=== PATIENT | male | born 1990 | race Two or more races ===

== ENCOUNTER 2017-05-17 10:03 | Emergency (ER) | payer OTHER ==
[2017-05-17 10:08] VITALS: BP 134/100; PULSE 89; TEMP 98.6; BMI 24.7
[2017-05-17] MEDS ORDERED: KETOROLAC TROMETHAMINE 60 MG/2 ML VIAL IM ONE (11:11)
[2017-05-17] MEDS ORDERED: KETOROLAC TROMETHAMINE 60 MG/2 ML VIAL ONE (11:12)
--- NOTE | 2017-05-17 11:17 | PDOC ---
History of Present Illness - General Chief Complaint: Injury Stated Complaint: ANKLE PAIN Time Seen by Provider: 05/17/17 10:35 History Source: Patient Exam Limitations: No Limitations - History of Present Illness Initial Comments: 05/17/17 11:11 Patient came to emergency department for evaluation of right ankle pain. Is uncertain as to cause of injury or pain, states stepdown from bed yesterday and may have landed too hard but does not have memory of any type of injury or sports related trauma. States became tender and is progressively worsened since yesterday. Has some swelling and erythema to his right lateral ankle. No history of gout, any rheumatology diseases although much of family suffers from osteoarthritis 05/17/17 19:30 05/17/17 19:37 Occurred: reports: yesterday Severity: reports: mild Pain Location: reports: lower extremity (right ankle ) Associated Symptoms (Fall): denies symptoms Past History - Travel Traveled outside of the country in the last 30 days: No Close contact w/someone who was outside of country & ill: No - Past Medical History Allergies/Adverse Reactions: Allergies Allergy/AdvReac Type Severity Reaction Status Date / Time No Known Allergies Allergy Verified 05/17/17 10:06 Home Medications: Ambulatory Orders Indomethacin [Indocin -] 50 mg PO TID #21 capsule 05/17/17 Other medical history: denies - Immunization History Immunization Up to Date: Yes - Psycho/Social/Smoking Cessation Hx Anxiety: No Suicidal Ideation: No Smoking Status: No Smoking History: Unknown if ever smoked Have you smoked in the past 12 months: No Number of Cigarettes Smoked Daily: 0 Information on smoking cessation initiated: No Hx Alcohol Use: No Drug/Substance Use Hx: No Substance Use Type: None Trauma Specific PMHX - Complaint Specific PMHX Back Injury: No Neck Injury: No Review of Systems - Review of Systems Able to Perform ROS?: Yes Is the patient limited Sinhala proficient: Yes Constitutional: Yes: Symptoms Reported HEENTM: No: Symptoms Reported Respiratory: No: Symptoms reported Musculoskeletal: Yes: Symptoms Reported, See HPI, Joint Swelling, Joint Stiffness (righjt ankle ) Integumentary: Yes: Symptoms Reported, See HPI, Erythema Neurological: No: Symptoms reported All Other Systems: Reviewed and Negative *Physical Exam - Vital Signs Last Vital Signs Temp Pulse Resp BP Pulse Ox 98.6 F 89 18 134/100 98 05/17/17 10:05 06/29/17 10:05 05/17/17 10:05 05/17/17 10:05 05/17/17 10:05 - Physical Exam General Appearance: Yes: Nourished, Appropriately Dressed, Apparent Distress HEENT: positive: DWAINE, Normal ENT Inspection, TMs Normal, Pharynx Normal Neck: negative: Tender Gastrointestinal/Abdominal: positive: Soft Musculoskeletal: positive: Normal Inspection Extremity: positive: Normal Capillary Refill, Normal Inspection, Tender, Swelling, Erythema. negative: Normal Range of Motion (painful erythema to right lateral malleolus, warm to touch,) Integumentary: positive: Normal Color Neurologic: positive: meatman II-XII NML intact, Fully Oriented, Alert, Normal Mood/ Affect, Normal Response, Motor Strength 03/23 ED Treatment Course - RADIOLOGY Radiology Studies Ordered: Category Date Time Status ANKLE & FOOT-RIGHT* [RAD] Stat Radiology 05/17/17 10:37 Completed Progress Note - Progress Note Progress Note: X-ray negative for fractures dislocations or any arthritic changes, Arthritic right ankle, will treat with anti-inflammatories and patient will follow up with orthopedist/podiatry for further *DC/Admit/Observation/Transfer Diagnosis at time of Disposition: Ankle joint pain Qualifiers: Laterality: right Qualified Code(s): M25.571 - Pain in right ankle and joints of right foot - Discharge Dispostion Disposition: HOME Condition at time of disposition: Stable Admit: No - Prescriptions Prescriptions: Indomethacin [Indocin -] 50 mg PO TID #21 capsule - Referrals Referrals: Jose Antonio Delgadillo [Primary Care Provider] - - Patient Instructions Printed Discharge Instructions: DI for Ankle Pain Additional Instructions: Rest, ice to area on and off for 15 minutes 4-6 times a day Avoid heavy lifting or exercise until pain and swelling is resolved or until further directed Keep area highly elevated to reduce swelling Use splints/Jamaal wrap as directed Followup with orthopedist in one to 2 days if not improving, if significantly improved may wait one week for followup with orthopedist May use ibuprofen 2-200 mg tablets every 6 hours as needed for pain - Post Discharge Activity Work/School Note: Back to Work
== END 2017-05-17 12:01 | disposition home or self-care (01) ==
LOC: JERFT 10:03
PROC: 2W3SX1Z Immobilization of Right Foot using Splint (ICD-10-PCS; principal; 2017-05-17)
DX: M25.571 Pain in right ankle and joints of right foot (principal); X58.XXXA Exposure to other specified factors, initial encounter; Y93.89 Activity, other specified; Y92.9 Unspecified place or not applicable
CPT/HCPCS: 73610-TC-RT; 73630-TC-RT; 99281-25

== ENCOUNTER 2017-12-14 14:15 | Emergency (ER) | payer OTHER ==
[2017-12-14 14:43] VITALS: BP 136/66; PULSE 89; TEMP 98.5; BMI 30.9
--- NOTE | 2017-12-14 14:43 | PDOC ---
Rapid Medical Evaluation Chief Complaint: Pain, Acute Time Seen by Provider: 12/14/17 14:39 Medical Evaluation: Allergies Allergy/AdvReac Type Severity Reaction Status Date / Time No Known Allergies Allergy Verified 05/17/17 10:06 Vital Signs Temp Pulse Resp BP Pulse Ox 99.3 F 99 H 20 105/58 99 12/14/17 14:28 12/14/17 14:28 12/14/17 14:28 12/14/17 14:28 12/14/17 14:28 12/14/17 14:41 I have performed a brief in-person evaluation of this patient. The patient presents with a chief complaint of: pain with urgency to urine and scant bleeding . "feels like I have another kidney stone" Pertinent physical exam findings: prancing and pale.. mild distress, I have ordered the following: UA , Spiral CT - The patient will proceed to the ED for further evaluation.
[2017-12-14 14:54] LABS: URINE APPEARANCE CLEAR; URINE BILIRUBIN NEGATIVE (NEGATIVE); URINE BLOOD 1+ (NEGATIVE); URINE COLOR LTYELLOW; URINE GLUCOSE (UA) NEGATIVE (NEGATIVE); URINE KETONE NEGATIVE (NEGATIVE); URINE LEUK ESTERASE NEGATIVE (NEGATIVE); URINE NITRITE NEGATIVE (NEGATIVE); URINE PROTEIN NEGATIVE (NEGATIVE); URINE UROBILINOGEN NEGATIVE mg/dL (0.2-1.0)
--- NOTE | 2017-12-14 15:18 | PDOC ---
History of Present Illness - General Chief Complaint: Pain, Acute Stated Complaint: LEFT SIDE PAIN Time Seen by Provider: 12/14/17 14:39 History Source: Patient - History of Present Illness Travel History: No Initial Comments: 12/14/17 15:15 27 yr male with history of kidney stones presents to ER with left flank and low back pain urianry urgency for 4 days no nausea or vomiting. Timing/Duration: reports: constant Quality: reports: mild Past History - Past Medical History Allergies/Adverse Reactions: Allergies Allergy/AdvReac Type Severity Reaction Status Date / Time No Known Allergies Allergy Verified 05/17/17 10:06 Home Medications: Ambulatory Orders NK [No Known Home Medication] 12/14/17 - Immunization History Immunization Up to Date: Yes - Suicide/Smoking/Psychosocial Hx Smoking Status: No Smoking History: Never smoked Have you smoked in the past 12 months: No Number of Cigarettes Smoked Daily: 0 Hx Alcohol Use: No Drug/Substance Use Hx: No Substance Use Type: None Abd/GI Specific PMHX - Complaint Specific PMHX Other History: kidney stones Review of Systems - Review of Systems Able to Perform ROS?: Yes Is the patient limited Azeri proficient: No Constitutional: No: Symptoms Reported HEENTM: No: Symptoms Reported Respiratory: No: Symptoms reported Cardiac (ROS): No: Symptoms Reported ABD/GI: No: Symptoms Reported : Yes: See HPI *Physical Exam - Vital Signs Last Vital Signs Temp Pulse Resp BP Pulse Ox 98.5 F 89 16 136/66 99 12/14/17 14:40 12/14/17 14:40 12/14/17 14:40 12/14/17 14:40 12/14/17 14:40 - Physical Exam General Appearance: Yes: Nourished, Appropriately Dressed HEENT: positive: EOMI, DWAINE Neck: positive: Supple Respiratory/Chest: positive: Lungs Clear, Normal Breath Sounds Cardiovascular: positive: Regular Rhythm, Regular Rate Gastrointestinal/Abdominal: positive: Normal Bowel Sounds, Soft Male Genitalia: negative: discharge, testicular tenderness, testicular mass, hernia, CVAT Lymphatic: negative: Adenopathy Musculoskeletal: positive: Normal Inspection Extremity: positive: Normal Capillary Refill Medical Decision Making - Medical Decision Making 12/14/17 15:16 cc: urinary urgency and pressure, left sided low back and flank pain for 4 days relieved with motrin 800mg taken yesterday. no nvd no fever or vomiting, no acute pain at present now. 12/14/17 16:21 ct resulted and discussed with pt in detail he is aware of the findings. pt states his pain has improved since ER visit pt states he feels he may have passed any stones earlier today. *DC/Admit/Observation/Transfer Diagnosis at time of Disposition: Renal colic, Renal stone - Discharge Dispostion Disposition: HOME Condition at time of disposition: Good - Referrals Referrals: Jose Antonio Delgadillo [Primary Care Provider] - Kvng Gomez MD [Staff Physician] - - Patient Instructions Additional Instructions: follow with the urologist next week for follow up also follow up with your PMD regarding the lung nodule found on the cat scan drink at least 2 liters of water a day avoid iced teas take ibuprofen 800mg every 8hrs for pain as needed - Post Discharge Activity
[2017-12-14 15:28] LABS: EPI CELLS RARE /HPF (FEW); URINE MUCUS RARE
== END 2017-12-14 16:32 | disposition home or self-care (01) ==
LOC: JERFT 14:15
DX: N20.0 Calculus of kidney (principal); Z87.442 Personal history of urinary calculi
CPT/HCPCS: 36415; 74176; 81003; 81015; 87491; 87591; 99281-25

== ENCOUNTER 2018-04-07 02:03 | Emergency (ER) | payer OTHER ==
[2018-04-07] MEDS ORDERED: KETOROLAC TROMETHAMINE 30 MG/1 ML VIAL IVPUSH ONE (02:37)
[2018-04-07] MEDS ORDERED: SODIUM CHLORIDE 1,000 ML IV STA (02:37)
[2018-04-07 02:43] VITALS: BP 136/89; PULSE 88; TEMP 98.2; BMI 30.9
--- NOTE | 2018-04-07 02:43 | PDOC ---
History of Present Illness - General Chief Complaint: Back Pain Stated Complaint: BACK PAIN/STOMACH PAIN Time Seen by Provider: 04/07/18 02:26 History Source: Patient, Old Records Exam Limitations: No Limitations - History of Present Illness Travel History: No Initial Comments: 04/07/18 02:38 28-year-old male with history of kidney stones presents emergency Department with progressively worsening pain starting in the right flank working its way down to suprapubic area. Patient states the pain came on suddenly 2 days ago and a stabbing feeling and has now increased in intensity at its worked its way from flank to suprapubic area. Currently 9/10. Patient also endorses urinary hesitancy. He denies fevers, chills, shortness of breath, nausea, vomiting, dysuria, hematuria, rectal bleeding. Past History - Past Medical History Allergies/Adverse Reactions: Allergies Allergy/AdvReac Type Severity Reaction Status Date / Time No Known Allergies Allergy Verified 04/07/18 02:43 Home Medications: Ambulatory Orders NK [No Known Home Medication] 12/14/17 - Immunization History Immunization Up to Date: Yes - Suicide/Smoking/Psychosocial Hx Smoking Status: No Smoking History: Never smoked Have you smoked in the past 12 months: No Number of Cigarettes Smoked Daily: 0 Hx Alcohol Use: No Drug/Substance Use Hx: No Substance Use Type: None Review of Systems - Review of Systems Able to Perform ROS?: Yes Is the patient limited Pashto proficient: No Constitutional: No: Symptoms Reported HEENTM: No: Symptoms Reported Respiratory: No: Symptoms reported Cardiac (ROS): No: Symptoms Reported ABD/GI: Yes: See HPI : Yes: See HPI Musculoskeletal: No: Symptoms Reported Integumentary: No: Symptoms Reported Neurological: No: Symptoms reported Endocrine: No: Symptoms Reported *Physical Exam - Physical Exam General Appearance: Yes: Appropriately Dressed. No: Apparent Distress HEENT: positive: Normal ENT Inspection Respiratory/Chest: positive: Lungs Clear, Normal Breath Sounds. negative: Respiratory Distress, Accessory Muscle Use Cardiovascular: positive: Regular Rhythm, Regular Rate. negative: Murmur Gastrointestinal/Abdominal: positive: Normal Bowel Sounds, Tender (suprapubic), Soft Musculoskeletal: positive: Normal Inspection, CVA Tenderness (R). negative: CVA Tenderness (L), Muscle Spasm Extremity: positive: Normal Inspection Integumentary: positive: Normal Color, Dry, Warm Neurologic: positive: Alert, Normal Response ED Treatment Course - LABORATORY CBC & Chemistry Diagram: 04/07/18 02:57 04/07/18 02:57 - RADIOLOGY Radiology Studies Ordered: Category Date Time Status SPIRAL- RENAL-STONE CT [CT] Stat CT Scan 04/07/18 02:37 Ordered Medical Decision Making - Medical Decision Making 04/07/18 02:41 A/P: 28-year-old male with right flank pain for 2 days Right CVA tenderness Abdomen soft and tender to palpation in the suprapubic area Patient states pain is consistent with his usual kidney stone pattern. IV fluids, Toradol, UA, labs, CT, reassess 04/07/18 05:00 Urine Test Results Urine Color Yellow 04/07/18 02:57 Urine Appearance Clear 04/07/18 02:57 Urine pH 5.0 (5.0-8.0) 04/07/18 02:57 Ur Specific [place] 1.021 (1.001-1.035) 04/07/18 02:57 Urine Protein Negative (NEGATIVE) 04/07/18 02:57 Urine Glucose (UA) Negative (NEGATIVE) 04/07/18 02:57 Urine Ketones Negative (NEGATIVE) 04/07/18 02:57 Urine Blood 1+ (NEGATIVE) H 04/07/18 02:57 Urine Nitrite Negative (NEGATIVE) 04/07/18 02:57 Urine Bilirubin Negative (<2.0 mg/dL) 04/07/18 02:57 Ur Leukocyte Esterase Negative (NEGATIVE) 04/07/18 02:57 Ur Epithelial Cells Rare /HPF (FEW) 04/07/18 02:57 Urine Mucus Rare 04/07/18 02:57 Urinalysis consistent with kidney stone. Patient is stating he does not want to wait for CT scan. As explained to the patient necessity for CT scan to rule out obstruction. The likelihood of obstruction giving normal BUN/creatinine at this time. Given the patient has a normal white count has no systemic signs of infection is low likelihood of an infected stone. I will sign the patient out AGAINST MEDICAL ADVICE. Patient verbalized understanding of needs for CAT scan does agree to return should he start to express any symptoms. *DC/Admit/Observation/Transfer Diagnosis at time of Disposition: Renal colic - Discharge Dispostion Disposition: AGAINST MEDICAL ADVICE Condition at time of disposition: Fair - Referrals Referrals: Jose Antonio Delgadillo [Primary Care Provider] - - Patient Instructions Additional Instructions: Urine testing suggest a high probability of the kidney stone. The blood testing reveals at this time he don't have any kidney damage protected change and we need to CAT scan to understand the potential size of the stones and if they're obstructing ureters. If there is an obstruction, urine could back up and cause kidney damage. take Motrin as directed by casting operator's instructions for pain. Return to emergency department for any worsening pain, fevers, chills, bloody urine or any other concerns. - Post Discharge Activity
[2018-04-07] MEDS ORDERED: KETOROLAC TROMETHAMINE 30 MG/1 ML VIAL ONE (03:03)
[2018-04-07 03:50] LABS: BASO % 0.5 % (0-2.0); EOS % 1.1 % (0-4.5); HEMATOCRIT 45.3 % (35.4-49); HEMOGLOBIN 15.2 GM/dL (11.7-16.9); LYMPH % 30.8 % (8-40); MCH 26.9 pg (25.7-33.7); MCHC 33.6 g/dl (32.0-35.9); MEAN CELL VOLUME 80.1 fl (80-96); MEAN PLT VOLUME 8.4 fl (7.5-11.1); MONO % 6.6 % (3.8-10.2); PLATELET COUNT 257 K/MM3 (134-434); RBC 5.65 M/mm3 (4.00-5.60); RDW 14.4 % (11.9-15.9); WHITE BLOOD COUNT 7.9 K/mm3 (4.0-10.0)
[2018-04-07 03:51] LABS: URINE APPEARANCE CLEAR; URINE BILIRUBIN NEGATIVE (<2.0 mg/dL); URINE COLOR YELLOW; URINE GLUCOSE (UA) NEGATIVE (NEGATIVE); URINE KETONE NEGATIVE (NEGATIVE); URINE LEUK ESTERASE NEGATIVE (NEGATIVE); URINE NITRITE NEGATIVE (NEGATIVE); URINE PROTEIN NEGATIVE (NEGATIVE)
[2018-04-07 04:04] LABS: EPI CELLS RARE /HPF (FEW); URINE MUCUS RARE
[2018-04-07 04:13] LABS: ALBUMIN 4.1 g/dl (3.4-5.0); ALK PHOS 68 U/L (45-117); ANION GAP 7 (8-16); BILIRUBIN,TOTAL 0.3 mg/dL (0.2-1.0); BLOOD UREA NITROGEN 15 mg/dL (7-18); CALCIUM 8.6 mg/dL (8.5-10.1); CHLORIDE 108 mmol/L (98-107); CO2 27 mmol/L (21-32); GLUCOSE,RANDOM 96 mg/dL (74-106); SGOT/AST 33 U/L (15-37); SGPT/ALT 77 U/L (12-78); SODIUM 142 mmol/L (136-145); TOT PROT 7.7 g/dl (6.4-8.2)
== END 2018-04-07 05:03 | disposition left against medical advice (07) ==
LOC: JER 02:03
PROC: 3E033GC Introduction of Other Therapeutic Substance into Peripheral Vein, Percutaneous Approach (ICD-10-PCS; principal; 2018-04-07)
DX: N20.0 Calculus of kidney (principal); Z87.442 Personal history of urinary calculi
CPT/HCPCS: 36415; 80053; 81003; 81015; 85025; 96374; 99281-25; J7030

== ENCOUNTER 2018-08-22 23:14 | Emergency (ER) | payer OTHER ==
[2018-08-22 23:16] VITALS: BP 137/87; PULSE 72; TEMP 98.7; BMI 31.8
[2018-08-23] MEDS ORDERED: KETOROLAC TROMETHAMINE 30 MG/1 ML VIAL IVPUSH ONE (00:12)
[2018-08-23] MEDS ORDERED: SODIUM CHLORIDE 1,000 ML IV ONE (00:12)
--- NOTE | 2018-08-23 00:27 | PDOC ---
History of Present Illness - General Chief Complaint: Pain Stated Complaint: PAIN, ACUTE Time Seen by Provider: 08/22/18 23:28 History Source: Patient, Old Records Exam Limitations: No Limitations - History of Present Illness Initial Comments: 08/23/18 00:22 28-year-old male with history of nephrolithiasis presents with right flank pain and yesterday. Reports his typical renal colic consisting of sharp and intermittent right flank pain, now radiating to his right lower quadrant/ testicle, associated with urinary urgency and dribbling but no dysuria or hematuria, some nausea but no vomiting or diarrhea or constipation. No fevers or chills. Denies any testicular swelling or scrotal discoloration. Because the pain was similar to past kidney stone pain, patient waited for presents today secondary to persistent symptoms. Past History - Past Medical History Allergies/Adverse Reactions: Allergies Allergy/AdvReac Type Severity Reaction Status Date / Time No Known Allergies Allergy Verified 08/22/18 23:16 Home Medications: Ambulatory Orders Oxycodone HCl/Acetaminophen [Percocet 5-325 mg Tablet] 1 - 2 tab PO Q6H PRN #20 tab MDD pain 08/23/18 Tamsulosin HCl [Flomax] 0.4 mg PO DAILY #7 cap.er.24h 08/23/18 COPD: No - Immunization History Immunization Up to Date: Yes - Suicide/Smoking/Psychosocial Hx Smoking Status: No Smoking History: Never smoked Have you smoked in the past 12 months: No Number of Cigarettes Smoked Daily: 0 Hx Alcohol Use: No Drug/Substance Use Hx: No Substance Use Type: None Review of Systems - Review of Systems Constitutional: No: Chills, Fever Respiratory: No: Cough, Shortness of Breath Cardiac (ROS): No: Chest Pain ABD/GI: Yes: Nausea. No: Diarrhea, Vomiting : Yes: See HPI All Other Systems: Reviewed and Negative *Physical Exam - Vital Signs Last Vital Signs Temp Pulse Resp BP Pulse Ox 98.7 F 72 18 137/87 100 08/22/18 23:14 08/22/18 23:14 08/22/18 23:14 08/22/18 23:14 08/22/18 23:14 - Physical Exam Comments: 08/23/18 00:24 Afebrile. GENERAL: The patient is awake, alert, and fully oriented, in no acute distress at this time. HEAD: Normal with no signs of trauma. EYES: PERRL, EOMI, sclera anicteric, conjunctiva clear ENT: Moist mucous membranes. NECK: Normal range of motion, supple . LUNGS: Breath sounds equal, clear to auscultation bilaterally. No wheeze/ crackles. HEART: Regular rate and rhythm, normal S1 and S2 without murmur or rub. ABDOMEN: Soft/nondistended. BS wnl. Right-sided abdominal discomfort to palpation without guarding or rebound, positive right CVA tenderness. No palpable masses. No hepatosplenomegaly. : Normal uncircumcised without urethral discharge, normal scrotal exam without focal tenderness or abnormality or erythema or swelling, bilaterally descended testicles, no palpable inguinal hernia. EXTREMITIES: Normal range of motion, no edema. 2+ distal pulses. NEUROLOGICAL: Cranial nerves II through XII grossly intact. Normal speech, normal gait. PSYCH: Normal mood, normal affect. SKIN: Warm, Dry, no rashes or lesions noted. ED Treatment Course - LABORATORY CBC & Chemistry Diagram: 08/23/18 00:18 08/23/18 00:18 - RADIOLOGY Radiology Studies Ordered: Category Date Time Status ABDOMEN & PELVIS CT W/O CONTR [CT] Stat CT Scan 08/23/18 00:21 Ordered Medical Decision Making - Medical Decision Making 08/23/18 00:26 28-year-old male with history of kidney stones presents with intermittent right flank pain since yesterday, similar to past nephrolithiasis. Afebrile, no evidence of superimposed infection. On review of prior records, patient had both 4 and 6 mm stones in the right collecting system, given 24 hours of symptoms and intermittent pain, could be consistent with larger stone causing higher grade obstruction. Check labs and urinalysis CT of the abdomen and pelvis Pain control Reassess 08/23/18 01:39 No leukocytosis, creatinine 1.1 which is baseline, urine with blood but no evidence of infection. On preliminary report of the CAT scan, there is a mid ureteral 4.6mm stone without hydronephrosis. Patient comfortable at this time following Toradol. Agrees with d/c plan on pain meds with urology f/u. Lives close by, understands return criteria. *DC/Admit/Observation/Transfer Diagnosis at time of Disposition: Right flank pain, Renal colic - Discharge Dispostion Disposition: HOME Condition at time of disposition: Improved - Prescriptions Prescriptions: Oxycodone HCl/Acetaminophen [Percocet 5-325 mg Tablet] 1 - 2 tab PO Q6H PRN #20 tab MDD pain PRN Reason: Pain Tamsulosin HCl [Flomax] 0.4 mg PO DAILY #7 cap.er.24h - Referrals Referrals: Jose Antonio Delgadillo [Primary Care Provider] - Franc Brooks MD., [Staff Physician] - - Patient Instructions Printed Discharge Instructions: DI for Kidney Stones Additional Instructions: Activity as tolerated. Stay hydrated. A CT scan shows a 4.6mm kidney stone on the Right side. There is no other infection or kidney problem at this time. Take ibuprofen 600 mg every 8 hours as needed for moderate pain. Take percocet as prescribed as needed for severe pain. Percocet can make you light-headed, so take proper precautions. Also take Flomax as prescribed to possibly help pass the stone. Continue your medications as previously prescribed by your physician. You should follow up with your primary doctor and a urologist (consider calling Dr. Brooks for an appointment) as soon as possible regarding today's emergency department visit. Return to the emergency department for any new or concerning symptoms, particularly persistent or worsening pain, fever or chills, difficulty urinating. - Post Discharge Activity
[2018-08-23] MEDS ORDERED: KETOROLAC TROMETHAMINE 30 MG/1 ML VIAL ONE (00:37)
[2018-08-23 00:46] LABS: HEMATOCRIT 45.1 % (35.4-49); HEMOGLOBIN 15.1 GM/dL (11.7-16.9); MCH 26.5 pg (25.7-33.7); MCHC 33.5 g/dl (32.0-35.9); MEAN CELL VOLUME 79.2 fl (80-96); PLATELET COUNT 245 K/MM3 (134-434); RBC 5.69 M/mm3 (4.00-5.60); RDW 14.6 % (11.9-15.9); WHITE BLOOD COUNT 8.3 K/mm3 (4.0-10.0)
[2018-08-23 00:49] LABS: URINE APPEARANCE SLCLOUDY; URINE BILIRUBIN NEGATIVE (<2.0 mg/dL); URINE COLOR YELLOW; URINE GLUCOSE (UA) NEGATIVE (NEGATIVE); URINE KETONE NEGATIVE (NEGATIVE); URINE LEUK ESTERASE NEGATIVE (NEGATIVE); URINE NITRITE NEGATIVE (NEGATIVE); URINE PROTEIN 1+ (NEGATIVE); URINE UROBILINOGEN NEGATIVE mg/dL (0.2-1.0)
[2018-08-23 01:01] LABS: EPI CELLS RARE /HPF (FEW); URINE BACTERIA MANY /hpf (NONE SEEN); URINE MUCUS RARE
[2018-08-23 01:04] LABS: CALCIUM OXALATE CRYSTALS 1+ /hpf (NONE SEEN)
[2018-08-23 01:20] LABS: ALBUMIN 4.1 g/dl (3.4-5.0); ALK PHOS 67 U/L (45-117); ANION GAP 5 MMOL/L (8-16); BILIRUBIN,TOTAL 0.4 mg/dL (0.2-1); BLOOD UREA NITROGEN 15 mg/dL (7-18); CHLORIDE 106 mmol/L (98-107); CO2 30 mmol/L (21-32); CREATININE 1.1 mg/dL (0.55-1.3); GLUCOSE,RANDOM 89 mg/dL (74-106); POTASSIUM 4.2 mmol/L (3.5-5.1); SGOT/AST 42 U/L (15-37); SGPT/ALT 94 U/L (13-61); SODIUM 141 mmol/L (136-145); TOT PROT 7.8 g/dl (6.4-8.2)
== END 2018-08-23 02:06 | disposition home or self-care (01) ==
LOC: JER 23:14
PROC: 3E0337Z Introduction of Electrolytic and Water Balance Substance into Peripheral Vein, Percutaneous Approach (ICD-10-PCS; principal; 2018-08-22)
PROC: 3E0333Z Introduction of Anti-inflammatory into Peripheral Vein, Percutaneous Approach (ICD-10-PCS; 2018-08-22)
DX: N20.0 Calculus of kidney (principal); Z87.442 Personal history of urinary calculi
CPT/HCPCS: 36415; 74176-TC; 80053; 81003; 81015; 85027; 99281-25; 99283-25; J7030

== ENCOUNTER 2019-03-31 20:00 | Emergency (ER) | payer OTHER ==
--- NOTE | 2019-03-31 20:05 | PDOC ---
Rapid Medical Evaluation Time Seen by Provider: 03/31/19 20:04 Medical Evaluation: Allergies Allergy/AdvReac Type Severity Reaction Status Date / Time No Known Allergies Allergy Verified 08/22/18 23:16 03/31/19 20:04 I have performed a brief in-person evaluation of this patient. The patient presents with a chief complaint of:L flank pain w/ gross hematuria tonight. No n/v/f/c, urethral discharge or testicular pain/swelling. H/o renal stones, no surgeries Pertinent physical exam findings:stable in NAD I have ordered the following:labs/ua/CT The patient will proceed to the ED for further evaluation. 03/31/19 20:05 Discharge Disposition - Diagnosis Flank pain - Referrals - Patient Instructions - Post Discharge Activity
[2019-03-31 20:06] VITALS: BP 134/88; PULSE 75; TEMP 98.2; BMI 31.8
--- NOTE | 2019-03-31 21:35 | PDOC ---
History of Present Illness - General Chief Complaint: Hematuria Stated Complaint: BLOOD IN URINE Time Seen by Provider: 03/31/19 20:04 History Source: Patient - History of Present Illness Initial Comments: 03/31/19 21:30 29 year old c/o left flank pain radiating to left lower abdominal area, since 6.45 pm today.denies fever/ chills., testicular pain, History of kidney stones last Nov 2018, Past History - Past Medical History Allergies/Adverse Reactions: Allergies Allergy/AdvReac Type Severity Reaction Status Date / Time No Known Allergies Allergy Verified 03/31/19 20:08 Home Medications: Ambulatory Orders Oxycodone HCl/Acetaminophen [Percocet 5-325 mg Tablet] 1 - 2 tab PO TID PRN #20 tab MDD 6 tabs 08/23/18 Oxycodone HCl/Acetaminophen [Percocet 5-325 mg Tablet] 1 - 2 tab PO TID PRN #20 tab MDD 6 tabs 08/23/18 Tamsulosin HCl [Flomax -] 0.4 mg PO DAILY #7 cap.er.24h 08/23/18 Tamsulosin HCl [Flomax] 0.4 mg PO DAILY #7 cap.er.24h 08/23/18 COPD: No - Immunization History Immunization Up to Date: Yes - Suicide/Smoking/Psychosocial Hx Smoking Status: No Smoking History: Unknown if ever smoked Have you smoked in the past 12 months: No Number of Cigarettes Smoked Daily: 0 Information on smoking cessation initiated: No Hx Alcohol Use: No Drug/Substance Use Hx: No Substance Use Type: None Review of Systems - Review of Systems Able to Perform ROS?: Yes Is the patient limited Montserratian proficient: No Constitutional: No: Symptoms Reported, See HPI, Chills, Diaphoresis, Fever, Loss of Appetite, Malaise, Night Sweats, Weakness, Weight Stable, Unintentional Wgt. Loss, Unexplained wgt Loss, Other : Yes: Flank Pain, Hematuria. No: Symptoms Reported, See HPI, Burning, Dysuria, Discharge, Frequency, Incontinence, Pain, Urgency, Testicular Mass, Testicular Swelling, Lesions, Testicular Pain, Other *Physical Exam - Vital Signs Last Vital Signs Temp Pulse Resp BP Pulse Ox 98.2 F 75 16 134/88 100 03/31/19 20:04 03/31/19 20:04 03/31/19 20:04 03/31/19 20:04 03/31/19 20:04 - Physical Exam General Appearance: Yes: Appropriately Dressed Gastrointestinal/Abdominal: positive: Normal Bowel Sounds, Tender (LLQ) Musculoskeletal: positive: CVA Tenderness (L) Extremity: positive: Normal Capillary Refill, Normal Inspection, Normal Range of Motion Integumentary: positive: Normal Color, Dry, Warm Neurologic: positive: Fully Oriented, Alert ED Treatment Course - LABORATORY CBC & Chemistry Diagram: 03/31/19 22:10 03/31/19 22:10 Progress Note - Progress Note Progress Note: A: flank pain LIKELY RECENTLY PASSED STONES P: labs spiral CT: MULTIPLE RENAL CALCULI NO HYDRO ON LEFT ua: GROSs hematuria urine culture gonorrhe/ CHLAMYDIA *DC/Admit/Observation/Transfer Diagnosis at time of Disposition: Flank pain, Renal colic - Discharge Dispostion Disposition: HOME - Referrals Referrals: Jose Antonio Delgadillo [Primary Care Provider] - Toro Green MD [Staff Physician] - Call tomorrow - Patient Instructions Printed Discharge Instructions: DI for Kidney Stones Additional Instructions: It is important that you drink plenty of fluids. Please follow-up with a urologist as soon as possible. You have multiple kidney stones noted in the CAT scan. You may return to the emergency room for any worsening symptoms. - Post Discharge Activity Forms/Work/School Notes: Back to Work
[2019-03-31 22:18] LABS: BASO % 0.8 % (0-2.0); EOS % 0.9 % (0-4.5); EPI CELLS 1.4 /HPF (0-5/HPF); HEMATOCRIT 45.5 % (35.4-49); HEMOGLOBIN 15.2 GM/dL (11.7-16.9); LYMPH % 29.4 % (8-40); MCH 26.6 pg (25.7-33.7); MCHC 33.4 g/dl (32.0-35.9); MEAN CELL VOLUME 79.7 fl (80-96); MEAN PLT VOLUME 7.8 fl (7.5-11.1); MONO % 6.4 % (3.8-10.2); NEUT % 62.5 % (42.8-82.8); PH,URINE 5.5 (5.0-8.0); PLATELET COUNT 240 K/MM3 (134-434); RBC 5.71 M/mm3 (4.00-5.60); RDW 14.6 % (11.9-15.9); URINE APPEARANCE TURBID; URINE BACTERIA 0.8 /hpf (NEGATIVE); URINE BILIRUBIN NEGATIVE (NEGATIVE); URINE CASTS 2 /lpf (0-8); URINE COLOR ORANGE; URINE GLUCOSE (UA) NEGATIVE (NEGATIVE); URINE KETONE NEGATIVE (NEGATIVE); URINE LEUK ESTERASE 1+ (NEGATIVE); URINE NITRITE NEGATIVE (NEGATIVE); URINE PROTEIN 1+ (NEGATIVE); URINE RBC 5455 /hpf (0-4); URINE UROBILINOGEN 0.2 mg/dL (0.2-1.0); URINE WBC 11 /hpf (0-5); WHITE BLOOD COUNT 8.6 K/mm3 (4.0-10.0)
[2019-03-31 22:39] LABS: ALBUMIN 4.1 g/dl (3.4-5.0); BILIRUBIN,TOTAL 0.4 mg/dL (0.2-1); CALCIUM 9.3 mg/dL (8.5-10.1); POTASSIUM 3.9 mmol/L (3.5-5.1); TOT PROT 7.6 g/dl (6.4-8.2)
[2019-04-01] MEDS ORDERED: ACETAMINOPHEN 325 MG TABLET (FP) PO ONE (00:03)
[2019-04-01] MEDS ORDERED: ACETAMINOPHEN 325 MG TABLET (FP) ONE (00:14)
== END 2019-04-01 00:34 | disposition home or self-care (01) ==
LOC: JER 20:00
DX: R10.32 Left lower quadrant pain (principal); N20.0 Calculus of kidney
CPT/HCPCS: 36415; 74176-TC; 80053; 81003; 85025; 87086; 87491; 87591; 99282-25

== ENCOUNTER 2019-05-06 09:54 | Emergency (ER) | payer OTHER | END 2019-05-06 14:14 | disposition home or self-care (01) | LOC: JERFT 09:54 ==

== ENCOUNTER 2020-05-25 16:30 | Inpatient (IN) | payer OTHER ==
[2020-05-25 16:47] VITALS: BMI 30.1
[2020-05-25] MEDS ORDERED: KETOROLAC TROMETHAMINE 30 MG/1 ML VIAL IVPUSH ONE (16:48)
[2020-05-25] MEDS ORDERED: SODIUM CHLORIDE 1,000 ML IV STA (16:48)
--- NOTE | 2020-05-25 16:49 | PDOC ---
Rapid Medical Evaluation Chief Complaint: Pain, Acute Time Seen by Provider: 05/25/20 16:47 Medical Evaluation: Allergies Allergy/AdvReac Type Severity Reaction Status Date / Time No Known Allergies Allergy Verified 04/11/20 15:40 Vital Signs Temp Pulse Resp BP Pulse Ox 99.0 F 75 16 131/62 99 05/25/20 16:36 05/25/20 16:36 05/25/20 16:36 05/25/20 16:36 05/25/20 16:36 05/25/20 16:49 CC: rt flank pain since this am, hx stone Exam: rt cva tenderness, vss Plan: labs, urine, u/s. ivf, toradol Discharge Disposition - Diagnosis Right flank pain - Discharge Dispostion Condition at time of disposition: Stable - Referrals Referrals: Jose Antonio Delgadillo [Primary Care Provider] - - Patient Instructions - Post Discharge Activity
[2020-05-25] MEDS ORDERED: TAMSULOSIN HCL 0.4 MG CAP PO ONE (17:02)
[2020-05-25] MEDS ORDERED: KETOROLAC TROMETHAMINE 30 MG/1 ML VIAL ONE (17:05)
--- NOTE | 2020-05-25 17:08 | PDOC ---
History of Present Illness - General Chief Complaint: Pain, Acute Stated Complaint: BACK PAIN Time Seen by Provider: 05/25/20 16:47 History Source: Patient Exam Limitations: Clinical Condition - History of Present Illness Travel History: No Initial Comments: 05/25/20 17:04 Patient with past medical history of kidney stones present with complaint of right flank pain which he described as cramping 8 out of 10 pain to right flank area since yesterday which has worsened today. Denies urinary frequency, dysuria, burning with urination or hematuria. Denies nausea, vomiting, diarrhea constipation. Denies any other symptom. Patient has not taken anything for symptoms Timing/Duration: reports: getting worse, other (1 day) Past History - Medical History Allergies/Adverse Reactions: Allergies Allergy/AdvReac Type Severity Reaction Status Date / Time No Known Allergies Allergy Verified 05/25/20 18:42 Home Medications: Ambulatory Orders NK [No Known Home Medication] 05/25/20 COPD: No Dementia: No Kidney Stones: Yes - Immunization History Immunization Up to Date: Yes - Psycho-Social/Smoking History Smoking Status: No Smoking History: Current every day smoker Have you smoked in the past 12 months: Yes Number of Cigarettes Smoked Daily: 0 Information on smoking cessation initiated: No - Substance Abuse Hx (Audit-C & DAST Scrn) How often the patient has a drink containing alcohol: Never Score: In Men: 4 or > Positive; In Women: 3 or > Positive: 0 Screen Result (Pos requires Nsg. Audit-10AR): Negative In the last yr the pt used illegal drug/Rx for NonMed reason: No Score: Yes response is considered Positive: 0 Screen Result (Positive result requires Nsg. DAST-10): Negative Review of Systems - Review of Systems Able to Perform ROS?: Yes Is the patient limited Greek proficient: No Constitutional: No: Chills, Fever, Malaise HEENTM: No: Symptoms Reported, See HPI, Eye Pain, Blurred Vision, Tearing, Recent change in vision, Double Vision, Cataracts, Ear Pain, Ocular Prothesis, Ear Discharge, Nose Pain, Nose Congestion, Tinnitus, Nose Bleeding, Hearing Loss, Throat Pain, Throat Swelling, Mouth Pain, Dental Problems, Difficulty Swallowing, Mouth Swelling, Other Respiratory: No: Symptoms reported, See HPI, Cough, Orthopnea, Shortness of Breath, SOB with Exertion, SOB at Rest, Stridor, Wheezing, Productive cough, H emoptysis, Other Cardiac (ROS): No: Symptoms Reported, See HPI, Chest Pain, Edema, Irregular Heart Rate, Lightheadedness, Palpitations, Syncope, Chest Tightness, Other ABD/GI: No: Symptoms Reported, See HPI, Constipated, Nausea, Vomiting, Abdominal cramping : Yes: Symptoms Reported, See HPI, Flank Pain (Right flank pain). No: Burning, Dysuria, Discharge, Hematuria, Urgency, Testicular Mass, Testicular Swelling, Lesions, Testicular Pain Musculoskeletal: Yes: Symptoms Reported, See HPI, Back Pain (Right side pain) Neurological: No: Numbness, Paresthesia, Dizziness All Other Systems: Reviewed and Negative *Physical Exam - Vital Signs Last Vital Signs Temp Pulse Resp BP Pulse Ox 99.0 F 75 16 131/62 99 05/25/20 16:36 05/25/20 16:36 05/25/20 16:36 05/25/20 16:36 05/25/20 16:36 - Physical Exam 05/25/20 17:07 GENERAL: Well developed, well nourished. Awake and alert in moderate acute distress. CARDIOVASCULAR: Regular rate and rhythm. No murmurs, rubs, or gallops. PULMONARY: No evidence of respiratory distress. Lungs clear to auscultation bilaterally. No wheezing, rales or rhonchi. ABDOMINAL: Soft. Non-tender. Non-distended. No rebound or guarding. No organomegaly. Normoactive bowel sounds MUSCULOSKELETAL : Moderate tenderness to right flank area. No midline tenderness. Right CVA tenderness. No bony deformities SKIN: Warm and dry. Normal capillary refill. No rashes. No jaundice. NEUROLOGICAL: Alert, awake, appropriate. No motor deficits in the lower extremities. Gait is normal without ataxia. PSYCHIATRIC: Cooperative. Good eye contact. Appropriate mood and affect. General Appearance: Yes: Nourished, Appropriately Dressed, Apparent Distress, Moderate Distress ED Treatment Course - LABORATORY CBC & Chemistry Diagram: 05/25/20 17:20 05/25/20 17:20 - RADIOLOGY Radiology Studies Ordered: Category Date Time Status SPIRAL- RENAL-STONE CT [CT] Stat CT Scan 05/25/20 16:59 Ordered Medical Decision Making - Medical Decision Making 05/25/20 17:05 Patient with past medical history of kidney stones present with complaint of right flank pain which he described as cramping 8 out of 10 pain to right flank area since yesterday which has worsened today. Denies urinary frequency, dysuria, burning with urination or hematuria. Denies nausea, vomiting, diarrhea constipation. Denies any other symptom. Patient has not taken anything for symptoms Exam significant for moderate tenderness to right flank area with subjective right CVA tenderness. No abdominal tenderness. Normal cardio and lung exam. N o guarding or rebound. Patient afebrile Symptoms likely cystitis versus kidney stone versus musculoskeletal pain. CBC, chemistry urine lab ordered from triage. Will add GC and chlamydia tests and urine. Toradol 30 mg IV and Flomax 0.8 mg ordered for flank pain. Spiral CT ordered to rule out kidney stone. Treat based on imaging and lab results 05/25/20 18:42 CBC shows mildly elevated WBC which is likely reactive. Renal ultrasound shows moderate hydronephrosis on the right which is unchanged from ultrasound 2 months ago when patient had same. Patient reported mild improvement with Toradol and still having pain despite seeing sleeping comfortably in chair. Will order Tylenol 1 g IV for pain. Patient pending CT reading 05/25/20 19:[address] shows multiple renal stone with 8.6 x 6 x 12 mm obstructing renal stone in ureter. Discussed with urology Dr. Limon who agrees for patient to be admitted for stent tomorrow morning and patient kept n.p.o. Spoke to admitting medicine team who agrees for patient to be admitted to Dr. Cochran Preadmission labs ordered. Admission order placed for admission to Dr. Cochran Discharge - Discharge Information Problems reviewed: Yes Clinical Impression/Diagnosis: Right flank pain, Renal stone, Hydronephrosis with renal and ureteral calculous obstruction Condition: Stable - Admission Yes - Follow up/Referral Referrals: Jose Antonio Delgadillo [Primary Care Provider] - Mukund Limon MD [Staff Physician] - - Patient Discharge Instructions - Post Discharge Activity
[2020-05-25 17:36] LABS: BASO % 0.6 % (0-2.0); EOS % 0.7 % (0-4.5); HEMATOCRIT 41.7 % (35.4-49); HEMOGLOBIN 13.7 GM/dL (11.7-16.9); MCH 26.6 pg (25.7-33.7); MEAN CELL VOLUME 80.6 fl (80-96); MEAN PLT VOLUME 7.3 fl (7.5-11.1); MONO % 6.9 % (3.8-10.2); NEUT % 79.8 % (42.8-82.8); PLATELET COUNT 379 K/MM3 (134-434); RBC 5.17 M/mm3 (4.00-5.60); RDW 14.6 % (11.9-15.9); WHITE BLOOD COUNT 12.4 K/mm3 (4.0-10.0)
[2020-05-25] MEDS ORDERED: TAMSULOSIN HCL 0.4 MG CAP ONE (17:58)
[2020-05-25 18:23] LABS: ALBUMIN 4.2 g/dl (3.4-5.0); ALK PHOS 210 U/L (45-117); ANION GAP 7 MMOL/L (8-16); BILIRUBIN,TOTAL 0.4 mg/dL (0.2-1); BLOOD UREA NITROGEN 11.4 mg/dL (7-18); CALCIUM 9.7 mg/dL (8.5-10.1); CHLORIDE 102 mmol/L (98-107); CO2 31 mmol/L (21-32); CREATININE 1.5 mg/dL (0.55-1.3); GLUCOSE,RANDOM 99 mg/dL (74-106); POTASSIUM 4.3 mmol/L (3.5-5.1); SGOT/AST 59 U/L (15-37); SGPT/ALT 114 U/L (13-61); SODIUM 141 mmol/L (136-145); TOT PROT 8.4 g/dl (6.4-8.2)
[2020-05-25 18:34] LABS: EPI CELLS 4 /uL (0-25.1); HYALINE CASTS 1 /uL (0-3.1); PH,URINE 6.5 (5.0-8.0); URINE APPEARANCE CLEAR; URINE BACTERIA 17 /uL (0-1359); URINE BILIRUBIN NEGATIVE (NEGATIVE); URINE COLOR YELLOW; URINE GLUCOSE (UA) NEGATIVE (NEGATIVE); URINE KETONE NEGATIVE (NEGATIVE); URINE LEUK ESTERASE NEGATIVE (NEGATIVE); URINE NITRITE NEGATIVE (NEGATIVE); URINE PROTEIN NEGATIVE (NEGATIVE); URINE RBC 75 /uL (0-23.9); URINE WBC 12 /uL (0-25.8)
[2020-05-25] MEDS ORDERED: ACETAMINOPHEN 1000 MG/100 ML VIAL (NON FORMULARY) IVPB ONE (18:43)
[2020-05-25] MEDS ORDERED: ACETAMINOPHEN INJECTION 100 ML IVPB ONE (18:48)
[2020-05-25] MEDS ORDERED: morphine CARPU-JECT 4 MG/1 ML DISP.SYRIN IVPUSH ONE (19:47)
[2020-05-25] MEDS ORDERED: morphine SULFATE 4 MG/ML VIAL ONE (20:51)
--- NOTE | 2020-05-25 21:15 | HP ---
Admitting History and Physical - Primary Care Physician PCP: Jose Antonio Delgadillo - Admission Chief Complaint: Flank Pain History of Present Illness: 30 y/o male with a PMhx of Renal Calculi. Who presents to the ED with right flank pain x 1 day. Patient denies fever, chills, cough, SOB, NICE, dizziness, CP, palpitations, AP, N/V/D, constipation, dysuria. History Source: Patient Limitations to Obtaining History: No Limitations - Past Medical History Renal/: Yes: Renal Calculi - Past Surgical History Additional Past Surgical History: Lithotripsy - Smoking History Smoking history: Current every day smoker Have you smoked in the past 12 months: Yes Aproximately how many cigarettes per day: 0 - Alcohol/Substance Use Hx Alcohol Use: No Home Medications - Allergies Allergies/Adverse Reactions: Allergies Allergy/AdvReac Type Severity Reaction Status Date / Time No Known Allergies Allergy Verified 05/25/20 18:42 - Home Medications Home Medications: Ambulatory Orders NK [No Known Home Medication] 05/25/20 Family Medical History Family History: Unremarkable Review of Systems - Review of Systems Constitutional: reports: No Symptoms Eyes: reports: No Symptoms HENT: reports: No Symptoms Neck: reports: No Symptoms Cardiovascular: reports: No Symptoms Respiratory: reports: No Symptoms Gastrointestinal: reports: No Symptoms Genitourinary: reports: Flank Pain Breasts: reports: No Symptoms Reported Musculoskeletal: reports: No Symptoms Integumentary: reports: No Symptoms Neurological: reports: No Symptoms Endocrine: reports: No Symptoms Hematology/Lymphatic: reports: No Symptoms Psychiatric: reports: No Symptoms Pain Intensity: 8 Physical Examination Vital Signs: Vital Signs Temperature 99.0 F 05/25/20 16:36 Pulse Rate 75 05/25/20 16:36 Respiratory Rate 16 05/25/20 16:36 Blood Pressure 131/62 05/25/20 16:36 O2 Sat by Pulse Oximetry (%) 99 05/25/20 18:45 Constitutional: Yes: Well Nourished, Mild Distress Eyes: Yes: WNL, Conjunctiva Clear, EOM Intact, PERRL HENT: Yes: WNL, Atraumatic, Normocephalic Neck: Yes: WNL, Supple, Trachea Midline Cardiovascular: Yes: WNL, Regular Rate and Rhythm, S1, S2 Respiratory: Yes: WNL, Regular, CTA Bilaterally Gastrointestinal: Yes: Normal Bowel Sounds, Soft, Tenderness ...Rectal Exam: Yes: Deferred Renal/: Yes: CVA Tenderness - Right Breast(s): Yes: WNL Musculoskeletal: Yes: Back Pain Extremities: Yes: WNL Edema: No Peripheral Pulses WNL: Yes Integumentary: Yes: Tattoos Neurological: Yes: WNL, Alert, Oriented, Cran Nerves II-XII Intact ...Motor Strength: WNL Psychiatric: Yes: WNL, Alert, Oriented Labs: CBC, BMP 05/25/20 17:20 05/25/20 17:20 Laboratory Results - last 24 hr 05/25/20 05/25/20 05/25/20 17:20 17:20 18:00 WBC 12.4 H RBC 5.17 Hgb 13.7 Hct 41.7 MCV 80.6 MCH 26.6 MCHC 33.0 RDW 14.6 Plt Count 379 D MPV 7.3 L Absolute Neuts (auto) 9.9 H Neutrophils % 79.8 Lymphocytes % 12.0 Monocytes % 6.9 Eosinophils % 0.7 Basophils % 0.6 Nucleated RBC % 0 Sodium 141 Potassium 4.3 Chloride 102 Carbon Dioxide 31 Anion Gap 7 L BUN 11.4 Creatinine 1.5 H Est GFR (CKD-EPI)AfAm 70.38 Est GFR (CKD-EPI)NonAf 60.73 Random Glucose 99 Calcium 9.7 Total Bilirubin 0.4 AST 59 H ALT 114 H Alkaline Phosphatase 210 H Total Protein 8.4 H Albumin 4.2 Urine Color Yellow Urine Appearance Clear Urine pH 6.5 Ur Specific [place] 1.021 Urine Protein Negative Urine Glucose (UA) Negative Urine Ketones Negative Urine Blood 1+ H Urine Nitrite Negative Urine Bilirubin Negative Urine Urobilinogen 1.0 Ur Leukocyte Esterase Negative Urine WBC (Auto) 12 Urine RBC (Auto) 75 Urine Casts (Auto) 1 U Epithel Cells (Auto) 4 Urine Bacteria (Auto) 17 Imaging - Results Chest X-ray: Report Reviewed, Image Reviewed Cat Scan: Report Reviewed, Image Reviewed Ultrasound: Report Reviewed, Image Reviewed Problem List - Problems (1) Hydronephrosis with renal and ureteral calculous obstruction Assessment/Plan: CTAP image, report reviewed- interval obstructing stone in the right mid ureter 8 x 6.5mm with moderate right renal hydronephrosis and proximal hydroureter Renal US image, report reviewed- moderate right renal hydronephrosis without definite interval change Urology consulted in ED- Dr Limon aware will take pt to OR tomorrow for stent placement UA- +1 blood, 12WBC, 17 Bacteria Urine Culture-pending Zosyn initiated in ED will continue Appreciate ID consult NPO Continue IVF Morphine Sulfate- pain management Monitor CBC, CMP Monitor vitals Code(s): N13.2 - HYDRONEPHROSIS WITH RENAL AND URETERAL CALCULOUS OBSTRUCTION (2) Right flank pain Assessment/Plan: See above Code(s): R10.9 - UNSPECIFIED ABDOMINAL PAIN (3) ROSEMARY (acute kidney injury) Assessment/Plan: Likely secondary to Obstructed Renal Calculi Continue IVF Monitor CMP Consider Nephrology consult if Cr worsens Renal US- reviewed Code(s): N17.9 - ACUTE KIDNEY FAILURE, UNSPECIFIED (4) Transaminitis Assessment/Plan: Unknown etiology Monitor CMP Hepatitis A+B Panel, Hep Bs antigen, Hep C, Fe, TIBC in am Avoid Hepatotoxic drugs Consider GI consult if no improvement Code(s): R74.0 - NONSPEC ELEV OF LEVELS OF TRANSAMNS & LACTIC ACID DEHYDRGNSE Assessment/Plan 30 y/o male with a PMhx of Renal Calculi. Admitted to M/S for Obstructed Renal Calculi with Hydronephrosis, ROSEMARY, Transaminitis for further evaluation of their emergent condition. Plan: See Problem List FEN D50.45%NS@100ml/hr Replete lytes prn NPO DVT ppx OOB SCDs Dispo: Requires Inpatient Care Visit type - Emergency Visit Emergency Visit: Yes ED Registration Date: 05/25/20 Care time: The patient presented to the Emergency Department on the above date and was hospitalized for further evaluation of their emergent condition. - New Patient This patient is new to me today: Yes Date on this admission: 05/25/20 - Critical Care Critical Care patient: No
[2020-05-25] MEDS ORDERED: MORPHINE SULFATE 2 MG/ML VIAL IVPUSH PRN (21:31)
[2020-05-25] MEDS ORDERED: DEXTROSE 5%-0.45% SALINE 1,000 ML IV SCH (21:45)
[2020-05-26] MEDS ORDERED: morphine CARPU-JECT 2 MG/1 ML DISP.SYRIN IVPUSH ONE (01:40)
[2020-05-26] MEDS ORDERED: CEFTRIAXONE 1 GM in DEXTROSE 5%-WATER - 50 ML IVPB ONE (01:53)
[2020-05-26] MEDS ORDERED: MORPHINE SULFATE 2 MG/ML VIAL ONE ×2 (02:36→07:43)
[2020-05-26] MEDS ORDERED: CEFTRIAXONE 1 GM/50 ML BAG ONE (02:37)
[2020-05-26] MEDS ORDERED: MORPHINE SULFATE 2 MG/ML VIAL IVPUSH ONE (04:00)
[2020-05-26 08:07] LABS: BASO % 0.6 % (0-2.0); HEMATOCRIT 40.5 % (35.4-49); HEMOGLOBIN 13.1 GM/dL (11.7-16.9); LYMPH % 16.7 % (8-40); MCH 26.1 pg (25.7-33.7); MCHC 32.3 g/dl (32.0-35.9); MEAN PLT VOLUME 7.4 fl (7.5-11.1); MONO % 8.4 % (3.8-10.2); NEUT % 73.3 % (42.8-82.8); PLATELET COUNT 329 K/MM3 (134-434); RDW 14.9 % (11.9-15.9); WHITE BLOOD COUNT 10.5 K/mm3 (4.0-10.0)
[2020-05-26 08:35] LABS: ALBUMIN 3.2 g/dl (3.4-5.0); BILIRUBIN,TOTAL 0.6 mg/dL (0.2-1); BLOOD UREA NITROGEN 11.5 mg/dL (7-18); CREATININE 1.4 mg/dL (0.55-1.3); POTASSIUM 4.1 mmol/L (3.5-5.1)
[2020-05-26] MEDS ORDERED: morphine SULFATE 4 MG/ML VIAL IVPUSH PRN ×3 (10:23→20:11)
[2020-05-26] MEDS ORDERED: ACETAMINOPHEN 1000 MG/100 ML VIAL (NON FORMULARY) IVPB PRN ×3 (10:23→20:11)
--- NOTE | 2020-05-26 10:24 | PN ---
Progress Note, Physician Chief Complaint: Nephrolithaisis History of Present Illness: C/O right flank pain, morphine 4 mg ineffective CTAP Obstructing right ureter measuring 8 x 6.5 mm causing right hydronephrosis - Current Medication List Current Medications: Active Medications Dextrose/Sodium Chloride (D5-1/2ns -) 1,000 mls @ 100 mls/hr IV ASDIR MEGHAN Last Admin: 05/25/20 22:14 Dose: 100 mls/hr Documented by: Ceftriaxone Sodium 1 gm/ (Dextrose) 50 mls @ 100 mls/hr IVPB DAILY [facility]; Protocol Morphine Sulfate (Morphine Sulfate) 2 mg IVPUSH Q6H PRN PRN Reason: PAIN LEVEL 6-10 Last Admin: 05/26/20 07:46 Dose: 2 mg Documented by: - Objective Vital Signs: Vital Signs Temperature 98.1 F 05/26/20 07:07 Pulse Rate 66 05/26/20 07:07 Respiratory Rate 18 05/26/20 07:07 Blood Pressure 126/70 05/26/20 07:07 O2 Sat by Pulse Oximetry (%) 96 05/25/20 21:12 Constitutional: Yes: Well Nourished, Calm, Mild Distress Cardiovascular: Yes: Regular Rate and Rhythm Respiratory: Yes: Regular, CTA Bilaterally Gastrointestinal: Yes: Normal Bowel Sounds, Soft Genitourinary: Yes: CVA Tenderness - Right Musculoskeletal: Yes: WNL Extremities: Yes: WNL Edema: No Peripheral Pulses WNL: Yes Neurological: Yes: Alert, Oriented Psychiatric: Yes: Alert, Oriented Labs: CBC, BMP 05/26/20 07:10 05/26/20 07:10 Problem List - Problems (1) ROSEMARY (acute kidney injury) Assessment/Plan: -2/2 to hydronpehrosis and obstructing stone -Nephrology consult -IVF -Monitor trend Problems reviewed: Yes Code(s): N17.9 - ACUTE KIDNEY FAILURE, UNSPECIFIED (2) Hydronephrosis with renal and ureteral calculous obstruction Assessment/Plan: -Urology to place stent today -Keep pt NPO -Pain management: Acetaminophen 1g IVPB Q6H PRN pain 1-3 Morphine 4 mg Q4H PRN for pain 4-6 Dilaudid 2 mg IVP Q4H PRN for pain 7-10 Problems reviewed: Yes Code(s): N13.2 - HYDRONEPHROSIS WITH RENAL AND URETERAL CALCULOUS OBSTRUCTION (3) Elevated LFTs Assessment/Plan: -CTAP unremarkable for any liver etiology -Trending down Problems reviewed: Yes Code(s): R79.89 - OTHER SPECIFIED ABNORMAL FINDINGS OF BLOOD CHEMISTRY Assessment/Plan See problem list
[2020-05-26] MEDS ORDERED: morphine SULFATE 4 MG/ML VIAL ONE (10:27)
--- NOTE | 2020-05-26 10:40 | EKG ---
Test Reason : Blood Pressure : / mmHG Vent. Rate : 062 BPM Atrial Rate : 062 BPM P-R Int : 166 ms QRS Dur : 086 ms QT Int : 378 ms P-R-T Axes : 039 071 032 degrees QTc Int : 383 ms NORMAL SINUS RHYTHM WITH SINUS ARRHYTHMIA SEPTAL INFARCT , AGE UNDETERMINED ABNORMAL ECG NO PREVIOUS ECGS AVAILABLE Confirmed by MD Jose, Teto ([id number]) on 05/26/2020 10:40:12 AM Referred By: Confirmed By:Teto Garcia MD
[2020-05-26] MEDS ORDERED: ACETAMINOPHEN INJECTION 100 ML IVPB ONE ×2 (10:53→21:40)
--- NOTE | 2020-05-26 11:13 | CONSULT ---
Consult Consult Specialty:: Nephrology Reason for Consultation:: ROSEMARY vs CKD - History of Present Illness Chief Complaint: right flank pain History of Present Illness: Pt is a 30 year old male with pmhx of nephrolithiasis who presents to the ER with right flank pain. He was found to have a stone. He denies fevers or chills. He complains of pain and is very uncomfortable. He has had a stone in the past and did get lithotripsy. He denies shortness of breath or chest pain. He denies hematuria. 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 - History Source History Provided By: Patient - Past Medical History Renal/: Yes: Renal Calculi - Alcohol/Substance Use Hx Alcohol Use: No - Smoking History Smoking history: Current every day smoker Have you smoked in the past 12 months: Yes Aproximately how many cigarettes per day: 0 Home Medications - Allergies Allergies/Adverse Reactions: Allergies Allergy/AdvReac Type Severity Reaction Status Date / Time No Known Allergies Allergy Verified 05/25/20 18:42 - Home Medications Home Medications: Ambulatory Orders NK [No Known Home Medication] 05/25/20 Family Medical History Family History: Denies Review of Systems - Review of Systems Constitutional: reports: Malaise Eyes: reports: No Symptoms HENT: reports: No Symptoms Neck: reports: No Symptoms Cardiovascular: reports: No Symptoms Respiratory: reports: No Symptoms Gastrointestinal: reports: No Symptoms Genitourinary: reports: Flank Pain Musculoskeletal: reports: No Symptoms Integumentary: reports: No Symptoms Neurological: reports: No Symptoms Endocrine: reports: No Symptoms Hematology/Lymphatic: reports: No Symptoms Psychiatric: reports: No Symptoms Physical Exam Vital Signs: Vital Signs Temperature 98.1 F 05/26/20 07:07 Pulse Rate 66 05/26/20 07:07 Respiratory Rate 18 05/26/20 07:07 Blood Pressure 126/70 05/26/20 07:07 O2 Sat by Pulse Oximetry (%) 96 05/25/20 21:12 Constitutional: Yes: Calm Eyes: Yes: Conjunctiva Clear HENT: Yes: Atraumatic Neck: Yes: Supple Cardiovascular: Yes: S1, S2 Respiratory: Yes: CTA Bilaterally Gastrointestinal: Yes: Soft Renal/: Yes: CVA Tenderness - Right Musculoskeletal: Yes: WNL Edema: No Neurological: Yes: Oriented Psychiatric: Yes: Oriented Labs: CBC, BMP 05/26/20 07:10 05/26/20 07:10 Imaging - Results Cat Scan: Report Reviewed Problem List - Problems (1) ROSEMARY (acute kidney injury) Code(s): N17.9 - ACUTE KIDNEY FAILURE, UNSPECIFIED (2) Hydronephrosis with renal and ureteral calculous obstruction Code(s): N13.2 - HYDRONEPHROSIS WITH RENAL AND URETERAL CALCULOUS OBSTRUCTION Assessment/Plan Current Medications Generic Name Dose Route Start Last Admin Trade Name Freq PRN Reason Stop Dose Admin Acetaminophen 1,000 mg 05/26/20 10:23 Ofirmev Injection - IVPB 05/27/20 10:23 Q6H PRN PAIN 1-5 Dextrose/Sodium Chloride 1,000 mls @ 100 mls/hr 05/25/20 21:45 05/25/20 22:14 D5-1/2ns - IV 100 mls/hr ASDIR MEGHAN Administration Ceftriaxone Sodium 1 gm/ 50 mls @ 100 mls/hr 05/27/20 10:00 Dextrose IVPB DAILY MEGHAN Protocol Morphine Sulfate 4 mg 05/26/20 10:23 05/26/20 10:33 Morphine Sulfate IVPUSH 4 mg Q4H PRN Administration PAIN LEVEL 6-10 Impression 1. ROSEMARY vs CKD 2. nephrolithiasis 3. 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
[2020-05-26] MEDS ORDERED: HYDROmorphone HCl 2 MG/ML VIAL ONE ×2 (13:33→17:50)
[2020-05-26] MEDS: HYDROmorphone HCl 2 MG/ML VIAL IVPUSH PRN ×2 (13:41→17:50)
--- NOTE | 2020-05-26 18:58 | CON.GU ---
Consult Consult Specialty:: urology Referred by:: Braxton Reason for Consultation:: right urteral stone with acute renal injury - History of Present Illness Chief Complaint: right renal colic History of Present Illness: patient is a 30 year old male with history of right flank pain with nausea x 36 hours. Patient denies fever, chills, dysuria, or gross hematuria. Patient has a history of kidney stones. - History Source History Provided By: Patient, Medical Record Limitations to Obtaining History: No Limitations - Past Medical History Renal/: Yes: Renal Calculi - Alcohol/Substance Use Hx Alcohol Use: No - Smoking History Smoking history: Current every day smoker Have you smoked in the past 12 months: Yes Aproximately how many cigarettes per day: 0 Home Medications - Allergies Allergies/Adverse Reactions: Allergies Allergy/AdvReac Type Severity Reaction Status Date / Time No Known Allergies Allergy Verified 05/25/20 18:42 - Home Medications Home Medications: Ambulatory Orders NK [No Known Home Medication] 05/25/20 Physical Exam- Vital Signs: Vital Signs Temperature 98.1 F 05/26/20 07:07 Pulse Rate 66 05/26/20 07:07 Respiratory Rate 18 05/26/20 07:07 Blood Pressure 126/70 05/26/20 07:07 O2 Sat by Pulse Oximetry (%) 96 05/25/20 21:12 Constitutional: Yes: Anxious, Moderate Distress Eyes: Yes: WNL, Conjunctiva Clear, EOM Intact HENT: Yes: WNL, Atraumatic, Normocephalic Neck: Yes: WNL, Supple, Trachea Midline Cardiovascular: Yes: WNL, Regular Rate and Rhythm Respiratory: Yes: WNL, Regular Gastrointestinal: Yes: Soft, Hypoactive Bowel Sounds Renal/: Yes: CVA Tenderness - Right Kidneys: Yes: FLank Pain Right Pelvis: Yes: Bladder Non Palpable Testicles: Yes: WNL Scrotum: Yes: WNL Penis: Yes: WNL Prostate Exam: Yes: Deferred Musculoskeletal: Yes: WNL Extremities: Yes: WNL Integumentary: Yes: WNL Labs: CBC, BMP 05/26/20 07:10 05/26/20 07:10 Imaging - Results Cat Scan: Report Reviewed Assessment/Plan impression right hydronephrosis with 10 mm obstructing stone acute renal injury severe right renal colic plan patient is emergently taken to the operating room for ureteroscopy and possible laser lithotripsy of right ureteral stone to avoid further renal injury and to salvage renal function
[2020-05-26] MEDS ORDERED: PROMETHAZINE HCL 25 MG/1 ML VIAL IVPUSH PRN (19:08)
[2020-05-26] MEDS ORDERED: ONDANSETRON 4 MG/2 ML VIAL IVPUSH PRN (19:08)
[2020-05-26] MEDS ORDERED: LACTATED RINGERS SOLUTION 1,000 ML IV SCH (19:15)
[2020-05-26] MEDS ORDERED: MIDAZOLAM HCL 2 MG/2 ML SINGLE DOSE VIAL ONE (19:30)
[2020-05-26] MEDS ORDERED: PROPOFOL 20 ML ONE (19:30)
[2020-05-26] MEDS ORDERED: LIDOCAINE HCL/PF 2% SDV 5ML VIAL ONE (19:31)
[2020-05-26] MEDS ORDERED: GENTAMICIN SO4 80 MG/2 ML VIAL ONE (19:38)
[2020-05-26] MEDS ORDERED: ceFAZolin SODIUM 1 GM VIAL ONE (19:39)
[2020-05-26] MEDS ORDERED: SODIUM CHLORIDE 0.9% P/F 10 ML VIAL IJ ONE (19:39)
[2020-05-26] MEDS ORDERED: ceFAZolin SODIUM 1 GM VIAL IVPB ONE (19:47)
[2020-05-26] MEDS ORDERED: GENTAMICIN 80MG PREMIX BAG IVPB ONE (19:47)
[2020-05-26] MEDS ORDERED: DEXAMETHASONE SOD PHOSPHATE 4 MG/1 ML VIAL ONE (19:48)
--- NOTE | 2020-05-26 20:06 | OP ---
Operative Note - Note: Operative Date: 05/26/20 Pre-Operative Diagnosis: right ureteral stone with high grade hydroureteronephrosis with acute renal injury Operation: cystoscopy/right retrograde pyelogram/right ureteroscopic stone manipulation/right ureteral stent placement Findings: impacted proximal ureteral stone measuring 8x10 + mm Post-Operative Diagnosis: Same as Pre-op Surgeon: Mukund Limon Anesthesia: General Drains & Tubes with Location: 6/26 cm right ureteral stone Operative Report Dictated: Yes
[2020-05-26] MEDS ORDERED: HYDROmorphone HCl 2 MG/ML VIAL IVPUSH PRN (20:11)
[2020-05-26] MEDS: DEXTROSE 5%-0.45% SALINE 1,000 ML IV SCH ×2 (21:38→22:06)
[2020-05-27 08:12] LABS: BASO % 0.2 % (0-2.0); HEMATOCRIT 40.5 % (35.4-49); HEMOGLOBIN 13.3 GM/dL (11.7-16.9); LYMPH % 5.1 % (8-40); MCH 26.4 pg (25.7-33.7); MEAN CELL VOLUME 80.2 fl (80-96); MEAN PLT VOLUME 7.7 fl (7.5-11.1); MONO % 1.4 % (3.8-10.2); NEUT % 93.3 % (42.8-82.8); PLATELET COUNT 368 K/MM3 (134-434); RBC 5.05 M/mm3 (4.00-5.60); RDW 14.2 % (11.9-15.9)
[2020-05-27 08:41] LABS: ALBUMIN 3.4 g/dl (3.4-5.0); BILIRUBIN,TOTAL 0.4 mg/dL (0.2-1); BLOOD UREA NITROGEN 14.2 mg/dL (7-18); CALCIUM 9.4 mg/dL (8.5-10.1); CREATININE 1.2 mg/dL (0.55-1.3); POTASSIUM 4.7 mmol/L (3.5-5.1); TOT PROT 7.4 g/dl (6.4-8.2)
--- NOTE | 2020-05-27 08:54 | PN ---
Progress Note (short form) - Note Progress Note: Anesthesia POD#1 S/P Right Cyto ureteroscopic stone manipulation,pyelogram and stent placement under GA VSS, moderate pain,still have hematuria, no N/V, No other injury seen. Chloe Christensen MD.
[2020-05-27] MEDS ORDERED: PT OWN MED DRAWER 7, Y5N ONE (09:36)
[2020-05-27] MEDS ORDERED: DEXTROSE 5%-WATER - 50 ML IVPB ONE (09:36)
[2020-05-27] MEDS ORDERED: cefTRIAXone SODIUM 1 GM VIAL ONE (09:36)
[2020-05-27] MEDS ORDERED: CEFTRIAXONE 1 GM in DEXTROSE 5%-WATER - 50 ML IVPB SCH (10:00)
[2020-05-27 10:04] VITALS: BP 130/75; PULSE 71; TEMP 98.8
[2020-05-27 10:15] LABS: ANISOCYTOSIS 0; MACROCYTOSIS 0; PLATELET ESTIMATE NORMAL
--- NOTE | 2020-05-27 10:25 | PN ---
Progress Note, Physician Chief Complaint: Nephrolithaisis History of Present Illness: S/P right uretral stent placement CTAP Obstructing right ureter measuring 8 x 6.5 mm causing right hydronephrosis + hematuria Pain improved wants to go home - Current Medication List Current Medications: Active Medications Fentanyl (Sublimaze Injection -) 50 mcg IVPUSH [id number] PRN PRN Reason: PAIN-PACU ORDER X 4 DOSES ONLY Hydromorphone HCl (Dilaudid Vial -) 2 mg IVPUSH Q4H PRN PRN Reason: PAIN LEVEL 7 - 10 Last Admin: 05/27/20 08:55 Dose: 2 mg Documented by: Ceftriaxone Sodium 1 gm/ (Dextrose) 50 mls @ 100 mls/hr IVPB DAILY MEGHAN; Protocol Last Admin: 05/27/20 09:44 Dose: 100 mls/hr Documented by: Dextrose/Sodium Chloride (D5-1/2ns -) 1,000 mls @ 100 mls/hr IV ASDIR MEGHAN Last Admin: 05/26/20 22:06 Dose: 0 mls Documented by: Morphine Sulfate (Morphine Sulfate) 4 mg IVPUSH Q4H PRN PRN Reason: PAIN LEVEL 4 - 6 Ondansetron HCl (Zofran Injection) 4 mg IVPUSH Q6H PRN PRN Reason: NAUSEA AND/OR VOMITING Promethazine HCl (Phenergan Injection -) 12.5 mg IVPUSH Q6H PRN PRN Reason: NAUSEA-FOR RESCUE AFTER 15 MIN - Objective Vital Signs: Vital Signs Temperature 98.8 F 05/27/20 08:45 Pulse Rate 71 05/27/20 08:45 Respiratory Rate 20 05/27/20 08:45 Blood Pressure 130/75 05/27/20 08:45 O2 Sat by Pulse Oximetry (%) 100 05/26/20 22:37 Constitutional: Yes: Well Nourished, No Distress, Calm Cardiovascular: Yes: Regular Rate and Rhythm Respiratory: Yes: Regular, CTA Bilaterally Gastrointestinal: Yes: Normal Bowel Sounds, Soft Genitourinary: Yes: Hematuria Musculoskeletal: Yes: WNL Extremities: Yes: WNL Edema: No Peripheral Pulses WNL: Yes Neurological: Yes: Alert, Oriented Psychiatric: Yes: Alert, Oriented Labs: CBC, BMP 05/27/20 06:55 05/27/20 06:55 Problem List - Problems (1) ROSEMARY (acute kidney injury) Assessment/Plan: -2/2 to hydronpehrosis and obstructing stone -Trending down -Nephrology consult -f/u CMP outpatient Problems reviewed: Yes Code(s): N17.9 - ACUTE KIDNEY FAILURE, UNSPECIFIED (2) Hydronephrosis with renal and ureteral calculous obstruction Assessment/Plan: -Seen by Urology -S/P uretral stent placement -Pain management: Acetaminophen 1g PO Q6H PRN pain 1-5 Oxycodone 5 mg Q4H PRN o/p for pain 6-10 -Levaquin 500 mg po daily x 7 days -F/U with urology outpatient Problems reviewed: Yes Code(s): N13.2 - HYDRONEPHROSIS WITH RENAL AND URETERAL CALCULOUS OBSTRUCTION (3) Elevated LFTs Assessment/Plan: -CTAP unremarkable for any liver etiology -Trending down -F/U outpatient Problems reviewed: Yes Code(s): R79.89 - OTHER SPECIFIED ABNORMAL FINDINGS OF BLOOD CHEMISTRY Assessment/Plan See problem list
--- NOTE | 2020-05-27 11:48 | DS ---
Physical Examination Vital Signs: Vital Signs Temperature 98.8 F 05/27/20 08:45 Pulse Rate 71 05/27/20 08:45 Respiratory Rate 20 05/27/20 08:45 Blood Pressure 130/75 05/27/20 08:45 O2 Sat by Pulse Oximetry (%) 100 05/26/20 22:37 Findings/Remarks: (1) ROSEMARY (acute kidney injury) Assessment/Plan: -2/2 to hydronpehrosis and obstructing stone -Trending down -Nephrology consult -f/u CMP outpatient Problems reviewed: Yes Code(s): N17.9 - ACUTE KIDNEY FAILURE, UNSPECIFIED (2) Hydronephrosis with renal and ureteral calculous obstruction Assessment/Plan: -Seen by Urology -S/P uretral stent placement -Pain management: Acetaminophen 1g PO Q6H PRN pain 1-5 Oxycodone 5 mg Q4H PRN o/p for pain 6-10 -Levaquin 500 mg po daily x 7 days -F/U with urology outpatient Problems reviewed: Yes Code(s): N13.2 - HYDRONEPHROSIS WITH RENAL AND URETERAL CALCULOUS OBSTRUCTION (3) Elevated LFTs Assessment/Plan: -CTAP unremarkable for any liver etiology -Trending down -F/U outpatient Problems reviewed: Yes Code(s): R79.89 - OTHER SPECIFIED ABNORMAL FINDINGS OF BLOOD CHEMISTRY Assessment/Plan See problem list Constitutional: Yes: Well Nourished, No Distress, Calm Cardiovascular: Yes: Regular Rate and Rhythm Respiratory: Yes: Regular, CTA Bilaterally Gastrointestinal: Yes: Normal Bowel Sounds, Soft Renal/: Yes: Hematuria Musculoskeletal: Yes: WNL Extremities: Yes: WNL Edema: No Peripheral Pulses WNL: Yes Neurological: Yes: Alert, Oriented Psychiatric: Yes: Alert, Oriented Labs: CBC, BMP 05/27/20 06:55 05/27/20 06:55 Discharge Summary Problems reviewed: Yes Reason For Visit: RENAL COLIC,HYDRONEPHROSIS W/ RENAL AND URETERAL Current Active Problems ROSEMARY (acute kidney injury) (Acute) Elevated LFTs (Acute) Hydronephrosis with renal and ureteral calculous obstruction (Acute) Renal stone (Acute) Right flank pain (Acute) Transaminitis (Acute) Condition: Stable - Instructions Diet, Activity, Other Instructions: Start Levaquin 500 mg 1 tab daily in AM for 7 days Follow up with Urology outpatient within next 2-3 weeks Follow up with PCP within next 2-3 weeks You need repeat CBC, CMP done within next 2-3 weeks Referrals: Mukund Limon MD [Staff Physician] - Jose Antonio Delgadillo [Primary Care Provider] - Disposition: HOME - Home Medications Comprehensive Discharge Medication List: Ambulatory Orders Acetaminophen 1 - 2 tab PO Q6H PRN #240 tablet 05/27/20 Oxycodone HCl 5 mg PO Q4H PRN #30 tablet MDD 6 05/27/20 levoFLOXacin [Levaquin -] 500 mg PO DAILY #7 tablet 05/27/20 Prescription Drug Monitoring Program (I-STOP) results: I-STOP reviewed and no issues identified
--- NOTE | 2020-05-27 15:12 | OP ---
DATE OF OPERATION: 05/26/2020 PREOPERATIVE DIAGNOSIS: Right ureteral stone with high-grade hydroureteronephrosis with acute renal injury. POSTOPERATIVE DIAGNOSIS: Right ureteral stone with high-grade hydroureteronephrosis with acute renal injury, with impacted 8 x 10-mm-plus proximal ureteral stone. PROCEDURE: Cystoscopy, right retrograde pyelogram, right ureteroscopic stone manipulation, right ureteral stent placement. ATTENDING: Sravanthi Palma MD ANESTHESIA: General. DESCRIPTION OF PROCEDURE: Patient was brought in the operating room, placed in the supine position on the operating room table. General anesthesia and preoperative antibiotics were administered. Ancef and gentamicin were utilized. The patient is brought into the operating room emergently due to acute renal injury secondary to an obstructing right-sided ureteral stone. The risks and benefits were explained to the patient, and the patient understands these risks and benefits and signed his consent. At this point, with the patient under anesthesia, he was placed in a dorsal lithotomy position and prepped and draped in the usual sterile manner. Cystoscopy was performed. The bladder was inspected. There was no sign of stones or neoplasm. The right ureteral orifice was identified, and the retrograde pyelogram was done. A high-grade proximal hydroureteronephrosis was noted with an obstructing stone that appeared to be greater than 1 cm in longitudinal size x 8 mm in width. At this point, a wire was passed with difficulty into the collecting system of the kidney. Ureteroscopy was then performed and the stone was found. The stone was impacted. Manipulation was utilized and the stone was disimpacted and pushed into the kidney. At this point visualization was poor due to the debris that had collected within the collecting system of the right kidney due to the obstruction. It was decided at this point to stent the patient in order to avoid negative sequelae. A 6-Yi 26-cm stent was placed over the wire utilizing the Seldinger technique with cystoscopic visualization. There were no complications noted. The patient tolerated this procedure very well. DISPOSITION: The patient is to the recovery room. SRAVANTHI PALMA M.D. /[id number]
--- NOTE | 2020-05-27 15:24 | PN ---
Progress Note, Physician History of Present Illness: Pt seen and examined at bedside. He feels that his pain has resolved. He denies fevers or chills. - Objective Vital Signs: Vital Signs Temperature 98.8 F 05/27/20 08:45 Pulse Rate 71 05/27/20 08:45 Respiratory Rate 20 05/27/20 08:45 Blood Pressure 130/75 05/27/20 08:45 O2 Sat by Pulse Oximetry (%) 100 05/26/20 22:37 Constitutional: Yes: Calm Eyes: Yes: Conjunctiva Clear HENT: Yes: Atraumatic Neck: Yes: Supple Cardiovascular: Yes: S1, S2 Respiratory: Yes: CTA Bilaterally Gastrointestinal: Yes: Soft Genitourinary: Yes: WNL Musculoskeletal: Yes: WNL Edema: No Neurological: Yes: Oriented Psychiatric: Yes: Oriented Labs: CBC, BMP 05/27/20 06:55 05/27/20 06:55 Problem List - Problems (1) ROSEMARY (acute kidney injury) Code(s): N17.9 - ACUTE KIDNEY FAILURE, UNSPECIFIED (2) Hydronephrosis with renal and ureteral calculous obstruction Code(s): N13.2 - HYDRONEPHROSIS WITH RENAL AND URETERAL CALCULOUS OBSTRUCTION Assessment/Plan Current Medications Generic Name Dose Route Start Last Admin Trade Name Freq PRN Reason Stop Dose Admin Acetaminophen 1,000 mg 05/26/20 10:23 Ofirmev Injection - IVPB 05/27/20 10:23 Q6H PRN PAIN 1-5 Dextrose/Sodium Chloride 1,000 mls @ 100 mls/hr 05/25/20 21:45 05/25/20 22:14 D5-1/2ns - IV 100 mls/hr ASDIR MEGHAN Administration Ceftriaxone Sodium 1 gm/ 50 mls @ 100 mls/hr 05/27/20 10:00 Dextrose IVPB DAILY MEGHAN Protocol Morphine Sulfate 4 mg 05/26/20 10:23 05/26/20 10:33 Morphine Sulfate IVPUSH 4 mg Q4H PRN Administration PAIN LEVEL 6-10 Impression 1. ROSMEARY vs CKD 2. nephrolithiasis 3. 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
[2020-05-27 21:07] LABS: HEP B CORE AB, TOT Negative (Negative)
[2020-05-29 02:08] LABS: FIBROSIS SCORE. 0.05 (0.00-0.21); HCV ALPHA 2 MACRO CHART 131 mg/dL (110-276); NECRO.INFLAM ACT.SCORE 0.34 (0.00-0.17); NECROINFLAM. ACTIVITY GRADE A1-Minimal activity (.)
== END 2020-05-27 14:11 | disposition home or self-care (01) | DRG 465 ==
LOC: JER 16:30 → JERBED 19:24 → J8W 05-26 21:53
PROVIDERS: ADMIT Internal Medicine; ATTEND Family Medicine
PROC: 0T768DZ Dilation of Right Ureter with Intraluminal Device, Via Natural or Artificial Opening Endoscopic (ICD-10-PCS; principal; 2020-05-26 17:30)
PROC: BT1BZZZ Fluoroscopy of Bladder and Urethra (ICD-10-PCS; 2020-05-26 17:30)
DX: N13.2 Hydronephrosis with renal and ureteral calculous obstruction (principal); N17.9 Acute kidney failure, unspecified; F17.210 Nicotine dependence, cigarettes, uncomplicated; R79.89 Other specified abnormal findings of blood chemistry; R31.9 Hematuria, unspecified; N23 Unspecified renal colic
CPT/HCPCS: 36415; 71045-TC-FY; 74176-TC; 76000-TC-FY; 76775-TC; 80053; 81003; 82172; 82977; 83010; 83540; 83550; 83883; 84460; 84484; 85025; 86704; 86706; 86707; 86708; 86709; 87040; 87086; 87340; 87350; 87491; 87591; 93005; 93010; 94760; 99285-25; J0131; U0003

== ENCOUNTER 2020-07-12 04:25 | Day surgery (SDC) | payer OTHER ==
[2020-07-09 18:14] VITALS: BMI 30.4
[2020-07-12] MEDS ORDERED: PROPOFOL 20 ML ONE (12:25)
[2020-07-12] MEDS ORDERED: MIDAZOLAM HCL 2 MG/2 ML SINGLE DOSE VIAL ONE (12:25)
[2020-07-12] MEDS ORDERED: EPHEDRINE SULFATE/0.9% NACL/PF 50 MG/10 ML SYRINGE NR ONE (12:31)
[2020-07-12 13:45] VITALS: TEMP 97
--- NOTE | 2020-07-12 14:15 | OP ---
Operative Note - Note: Operative Date: 07/12/20 Pre-Operative Diagnosis: Right proximal ureter stone Operation: Right ESWL Findings: 15 mm proximal ureter Right stone, JJ stent Right Post-Operative Diagnosis: Same as Pre-op Surgeon: Mukund Limon Anesthesia: Regional Estimated Blood Loss (mls): 0 Operative Report Dictated: Yes
[2020-07-12 15:12] VITALS: BP 120/70; PULSE 70
--- NOTE | 2020-07-12 16:33 | OP ---
DATE OF OPERATION: 07/12/2020 PREOPERATIVE DIAGNOSIS: Right proximal ureteral stone. POSTOPERATIVE DIAGNOSIS: Right proximal ureteral stone. PROCEDURE: Right extracorporeal shockwave lithotripsy. ATTENDING: Sravanthi Limno M.D. ANESTHESIA: Fractional. DESCRIPTION OF PROCEDURE: Patient was brought in the operating room, placed in a supine position on the operating room table. Ultrasonography and fluoroscopy were performed. The patient was noted to have a 15-mm proximal righter ureteral stone. A stent was noted to be in place. Shockwave lithotripsy was performed on this stone. 3000 impulses at 20 joules of power were administered to the stone with excellent fragmentation noted under realtime ultrasonography and fluoroscopy. No complications were noted. The patient tolerated the procedure very well. SRAVANTHI PALMA M.D. SE/[id number]
[2020-07-12] MEDS ORDERED: ACETAMINOPHEN 325 MG TABLET (FP) PO PRN (17:41)
[2020-07-12] MEDS ORDERED: ONDANSETRON 4 MG/2 ML VIAL IVPUSH PRN (17:41)
[2020-07-12] MEDS ORDERED: oxyCODONE HCL 5 MG TABLET PO PRN (17:41)
[2020-07-12] MEDS ORDERED: LACTATED RINGERS SOLUTION 1,000 ML IV SCH (17:45)
== END 2020-07-12 15:00 | disposition home or self-care (01) ==
LOC: JASU-SURG 04:25
PROVIDERS: ATTEND Urology
PROC: 0TF6XZZ Fragmentation in Right Ureter, External Approach (ICD-10-PCS; principal; 2020-07-12 11:45)
DX: N20.1 Calculus of ureter (principal)

== ENCOUNTER 2021-02-20 20:56 | Emergency (ER) | payer OTHER ==
[2021-02-20 21:16] VITALS: BP 129/90; PULSE 80; TEMP 98.6; BMI 30.1
[2021-02-22 06:05] LABS: SARS-CoV-2 NAA Not Detected (Not Detected)
== END 2021-02-20 23:21 | disposition home or self-care (01) ==
LOC: JER 20:56
DX: Z20.822 Contact with and (suspected) exposure to COVID-19 (principal)
CPT/HCPCS: 99283-25; C9803; U0003; U0005

== ENCOUNTER 2021-05-03 13:03 | Emergency (ER) | payer OTHER ==
[2021-05-03 13:08] VITALS: BP 112/74; PULSE 80; TEMP 98.9; BMI 30.9
== END 2021-05-03 13:44 | disposition home or self-care (01) ==
LOC: JERFT 13:03
DX: R04.0 Epistaxis (principal)
CPT/HCPCS: 99281-25

== ENCOUNTER 2021-07-16 01:45 | Emergency (ER) | payer OTHER ==
[2021-07-16] MEDS ORDERED: KETOROLAC TROMETHAMINE 15 MG/ML VIAL IM ONE (03:09)
[2021-07-16] MEDS ORDERED: KETOROLAC TROMETHAMINE 15 MG/ML VIAL ONE (03:25)
[2021-07-16 04:06] VITALS: BP 132/90; PULSE 85; TEMP 98.9; BMI 26.6
== END 2021-07-16 06:24 | disposition home or self-care (01) ==
LOC: JER 01:45
PROC: 3E0233Z Introduction of Anti-inflammatory into Muscle, Percutaneous Approach (ICD-10-PCS; principal; 2021-07-16)
PROC: 2W3LX1Z Immobilization of Right Lower Extremity using Splint (ICD-10-PCS; 2021-07-16)
DX: M79.671 Pain in right foot (principal); V13.4XXA Pedal cycle driver injured in collision with car, pick-up truck or van in traffic accident, initial encounter
CPT/HCPCS: 73000-TC-RT-FY; 73630-TC-RT-FY; 99285-25

== ENCOUNTER 2021-07-25 18:01 | Emergency (ER) | payer OTHER ==
[2021-07-25 18:20] VITALS: BP 149/102; PULSE 89; TEMP 98; BMI 29.2
[2021-07-25] MEDS ORDERED: IBUPROFEN 600 MG TABLET (FP) PO ONE (18:20)
[2021-07-25] MEDS ORDERED: KETOROLAC TROMETHAMINE 60 MG/2 ML VIAL IM ONE ×2 (19:53→19:54)
[2021-07-25] MEDS ORDERED: KETOROLAC TROMETHAMINE 60 MG/2 ML VIAL ONE (19:54)
== END 2021-07-25 20:02 | disposition home or self-care (01) ==
LOC: FER 18:01
PROC: 3E0233Z Introduction of Anti-inflammatory into Muscle, Percutaneous Approach (ICD-10-PCS; principal; 2021-07-25)
DX: M79.671 Pain in right foot (principal); V89.2XXA Person injured in unspecified motor-vehicle accident, traffic, initial encounter; Y92.9 Unspecified place or not applicable
CPT/HCPCS: 73630-TC-RT-FY; 96372; 99284-25